=== PATIENT | male | born 1970 | race Caucasian/White ===

== ENCOUNTER 2017-05-11 12:44 | Observation (INO) | payer OTHER ==
[2017-05-11 12:51] VITALS: BMI 30.2
[2017-05-11] MEDS ORDERED: ASPIRIN 325 MG ENTERIC COATED TABLET (FP) ONE (13:09)
[2017-05-11] MEDS ORDERED: ASPIRIN 81 MG CHEWABLE TABLETS PO ONE (13:10)
[2017-05-11 13:33] LABS: BASOPHIL 0.4 % (0-2.0); EOSINOPHIL 0.3 % (0-4.5); MCH 30.5 pg (25.7-33.7); MEAN CELL VOLUME 89.5 fl (80-96); MEAN PLT VOLUME 10.5 fl (7.5-11.1); NEUTROPHILS 69.7 % (42.8-82.8); PLATELET COUNT 184 K/MM3 (134-434); RDW 12.7 % (11.9-15.9); WHITE BLOOD COUNT 7.6 K/mm3 (4.0-10.0)
--- NOTE | 2017-05-11 13:34 | PDOC ---
History of Present Illness - General History Source: Patient Exam Limitations: No Limitations - History of Present Illness Initial Comments: 05/11/17 13:40 The patient is a 46 year old male, with a significant past medical history of mitral valve prolapse and HTN, who presents to the emergency department with chest pain and shortness of breath onset 1 hour ago. The patient states that he was sitting on his desk when the pain started. He describes his chest pain as a heaviness sensation, without radiation or modifying factors. He reports that the pain was a 10/10 initially and is currently a 5/10 in severity. He notes that he had two vomiting episodes today due to the pain that was nonbilious and nonbloody. 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 He reports that he had a stress test roughly 2 years ago which was within normal limits The patient denies headache and dizziness. Denies fever, chills, nausea, vomit, diarrhea and constipation. Denies dysuria, frequency, urgency and hematuria. Allergies: None Past surgical history: Hernia repair, lower back surgery (sciatica) Social history: No alcohol, tobacco or drug use reported <Pietro Gonzalez - Last Filed: 05/11/17 13:40> <Jean Claude Arenas - Last Filed: 05/11/17 17:20> - General Chief Complaint: Chest Pain Stated Complaint: CHEST PAIN Time Seen by Provider: 05/11/17 13:10 Past History <Pietro Gonzalez - Last Filed: 05/11/17 13:40> - Past Medical History Cardiac Disorders: Yes (mitral valve [pt doent remember ]) HTN: Yes Suicide Attempt (Hx): No Other medical history: SCIATICA - Surgical History Abdominal Surgery: Yes (BILAT ING HERNIA) - Immunization History Td Vaccination: Yes TDAP Vaccination: Yes Immunization Up to Date: Yes - Psycho/Social/Smoking Cessation Hx Anxiety: No Suicidal Ideation: No Smoking Status: No Smoking History: Never smoked Years of Tobacco Use: 0 Have you smoked in the past 12 months: No Number of Cigarettes Smoked Daily: 0 Cigars Per Day: 0 Information on smoking cessation initiated: No Hx Alcohol Use: No Drug/Substance Use Hx: No Substance Use Type: None Hx Substance Use Treatment: No <Jean Claude Arenas - Last Filed: 05/11/17 17:20> - Past Medical History Allergies/Adverse Reactions: Allergies Allergy/AdvReac Type Severity Reaction Status Date / Time No Known Allergies Allergy Verified 05/11/17 12:47 Home Medications: Ambulatory Orders Amlodipine Besylate [Norvasc -] 10 mg PO DAILY #0 02/22/15 Famotidine [Pepcid] 40 mg PO DAILY #0 02/22/15 Hydrochlorothiazide [Hctz -] 50 mg PO DAILY #0 02/22/15 Metoprolol Tartrate 50 mg PO DAILY #0 02/22/15 Docusate Sodium [Colace -] 100 mg PO TID 05/11/17 Review of Systems - Review of Systems Constitutional: No: Chills, Fever Respiratory: Yes: Shortness of Breath, SOB with Exertion. No: Cough Cardiac (ROS): Yes: Chest Pain, Lightheadedness. No: Edema, Syncope ABD/GI: Yes: Nausea, Vomiting. No: Diarrhea All Other Systems: Reviewed and Negative <Jean Claude Arenas - Last Filed: 05/11/17 17:20> *Physical Exam - Vital Signs Last Vital Signs Temp Pulse Resp BP Pulse Ox 98.7 F 102 H 18 139/92 100 05/11/17 12:47 05/11/17 12:47 05/11/17 12:47 05/11/17 12:47 05/11/17 12:47 - Physical Exam Comments: 05/11/17 13:44 GENERAL: The patient is awake, alert, and fully oriented, in no acute distress. HEAD: Normal with no signs of trauma. EYES: Pupils equal, round and reactive to light, extraocular movements intact, sclera anicteric, conjunctiva clear with no pallor. ENT: Ears normal, nares patent, oropharynx clear without exudates. Moist mucous membranes. NECK: Normal range of motion, supple without lymphadenopathy, JVD, or masses. LUNGS: Breath sounds equal, clear to auscultation bilaterally. No wheeze/ crackles. HEART: Regular rate and rhythm, normal S1 and S2 without murmur or rub. ABDOMEN: Soft/nontender/nondistended. BS wnl. No guarding or rebound. No palpable masses. No hepatosplenomegaly. EXTREMITIES: Normal range of motion, no edema. No clubbing or cyanosis. No cords , erythema, or tenderness. NEUROLOGICAL: Cranial nerves II through XII grossly intact. Normal speech, normal gait. PSYCH: Normal mood, normal affect. SKIN: Warm, Dry, normal turgor, no rashes or lesions noted. <Pietro Gonzalez - Last Filed: 05/11/17 13:40> - Vital Signs Last Vital Signs Temp Pulse Resp BP Pulse Ox 98.7 F 102 H 18 139/92 100 05/11/17 12:47 05/11/17 12:47 05/11/17 12:47 05/11/17 12:47 05/11/17 12:47 <Jean Claude Arenas - Last Filed: 05/11/17 17:20> Heart Score/ECG Review #1 ECG reviewed & interpreted by me at: 12:54 General ECG Interpretation: Sinus Rhythm, Normal Rate (106, slight tachy), Normal Intervals (qtc 430), No acute ischemic changes (TWI inferior and lateral leads) #2 ECG reviewed & interpreted by me at: 14:48 General ECG Interpretation: Sinus Rhythm, Normal Rate (85), Normal Intervals, No acute ischemic changes (persistent TWI V5V6, flattening now in inferior leads. No ST changes.) <Jean Claude Arenas - Last Filed: 05/11/17 17:20> ED Treatment Course - LABORATORY CBC & Chemistry Diagram: 05/11/17 13:10 05/11/17 13:10 - Medications Given in the ED: ED Medications Discontinued Medications Generic Name Dose Route Start Last Admin Trade Name Freq PRN Reason Stop Dose Admin Aspirin 325 mg 05/11/17 13:10 05/11/17 13:11 Asa - PO 05/11/17 13:11 325 mg ONCE ONE Administration <Pietro Gonzalez - Last Filed: 05/11/17 13:40> - LABORATORY CBC & Chemistry Diagram: 05/11/17 13:10 05/11/17 13:10 - RADIOLOGY Radiology Studies Ordered: Category Date Time Status CHEST X-RAY PORTABLE* [RAD] Stat Radiology 05/11/17 13:10 Taken - Medications Given in the ED: ED Medications Discontinued Medications Generic Name Dose Route Start Last Admin Trade Name Freq PRN Reason Stop Dose Admin Aspirin 325 mg 05/11/17 13:10 05/11/17 13:11 Asa - PO 05/11/17 13:11 325 mg ONCE ONE Administration <Jean Claude Arenas - Last Filed: 05/11/17 17:20> Medical Decision Making - Medical Decision Making 05/11/17 13:31 A portion of this note was documented by scribe services under my direction. I have reviewed the details of the note, within reason, and agree with the documentation with the following case summary and management plan written by me. 46-year-old male with history of hypertension and spinal stenosis presents with chest pain episode this afternoon. Patient was at work and developed chest heaviness that radiated to his throat, associated with shortness of breath and diaphoresis and nausea/vomiting. Symptoms began about one hour prior to arrival , have predominantly resolved and now with just residual chest discomfort. Patient does have history of exertional chest pain and dyspnea, but limited exertion at baseline because of his spinal disease. Had a stress test a few years ago that was reportedly normal, never had a catheterization. Vital signs as noted. Exam is nonfocal. Left foot brace in place, no edema or calf tenderness 46-year-old male with concerning episode of chest pain today, most suspicious for unstable angina. Stat EKG shows inferior and lateral T wave inversions without notable ST change Check labs, chest x-ray Full dose aspirin Repeat EKG Will need admission for cardiac work 05/11/17 14:36 CXR normal, Trop negative but CKMB 12. Still with some chest heaviness, EKG #2 pending. Given h/o HTN, will do CT dissection protocol. Will proceed with admission to [facility]. 05/11/17 14:42 Accepted for obs tele by Dr. Villeda, signout given to [employer] Isai. Cardiology Dr. Holly consulted. 05/11/17 15:37 Began complaining of worsening pleuritic chest pain and headache. Neuro intact, VS unchanged and wnl. ? dissection, so brought for previously ordered CT protocol. Reglan for DILLON. Close monitoring. 05/11/17 17:19 Remains HD stable, still c/o some DILLON but neuro intact. On prelim review of CT, no dissection. Will proceed with tele admission. Discussed with Dr. Lang, 2nd trop ordered as per Dr. Lang. <Jean Claude Arenas - Last Filed: 05/11/17 17:20> *DC/Admit/Observation/Transfer - Attestations Scribe Attestion: 05/11/17 13:45 Documentation prepared by Pietro Gonzalez, acting as medical secretary teacher for Jean Claude Arenas MD <Pietro Gonzalez - Last Filed: 05/11/17 13:40> - Discharge Dispostion Admit: Yes <Jean Claude Arenas - Last Filed: 05/11/17 17:20> Diagnosis at time of Disposition: Unstable angina Chest pain Qualifiers: Chest pain type: precordial pain Qualified Code(s): R07.2 - Precordial pain
[2017-05-11 13:55] LABS: ANION GAP 11 (8-16); BILIRUBIN,TOTAL 0.8 mg/dL (0.2-1.0); CALCIUM 9.3 mg/dL (8.5-10.1); CO2 24 mmol/L (21-32); CREATININE 1.1 mg/dL (0.7-1.3); GLUCOSE,RANDOM 120 mg/dL (74-106); SGPT/ALT 79 U/L (12-78); TOT PROT 7.4 g/dl (6.4-8.2)
[2017-05-11 13:58] LABS: ALK PHOS 69 U/L (45-117); TROPONIN I < 0.02 ng/ml (0.00-0.05)
[2017-05-11 14:01] LABS: MAGNESIUM 2.4 mg/dL (1.8-2.4); SGOT/AST 43 U/L (15-37)
[2017-05-11] MEDS ORDERED: ACETAMINOPHEN 325 MG TABLET (FP) PO ONE (14:22)
[2017-05-11] MEDS ORDERED: ACETAMINOPHEN 325 MG TABLET (FP) ONE ×2 (14:23→14:24)
--- NOTE | 2017-05-11 14:35 | EKG ---
Test Reason : Blood Pressure : / mmHG Vent. Rate : 106 BPM Atrial Rate : 106 BPM P-R Int : 168 ms QRS Dur : 078 ms QT Int : 324 ms P-R-T Axes : 060 052 042 degrees QTc Int : 430 ms SINUS TACHYCARDIA POSSIBLE LEFT ATRIAL ENLARGEMENT NONSPECIFIC T WAVE ABNORMALITY ABNORMAL ECG WHEN COMPARED WITH ECG OF 22-FEB-2015 09:32, VENT. RATE HAS INCREASED BY 41 BPM Confirmed by DELMI LEE MD ([id number]) on 05/11/2017 2:35:02 PM Referred By: Confirmed By:DELMI LEE MD
[2017-05-11 14:37] LABS: INR 1.21 (0.82-1.09); PROTHROMBIN TIME (PATIENT) 13.4 SEC (9.98-11.88)
[2017-05-11] MEDS ORDERED: morphine CARPU-JECT 4 MG/1 ML DISP.SYRIN IVPUSH ONE (14:37)
[2017-05-11] MEDS ORDERED: morphine CARPU-JECT 4 MG/1 ML DISP.SYRIN ONE (14:45)
[2017-05-11] MEDS ORDERED: METOCLOPRAMIDE HCL INJECTION 10 MG/2 ML VIAL IVPB ONE (15:32)
[2017-05-11] MEDS ORDERED: METOCLOPRAMIDE HCL INJECTION 10 MG/2 ML VIAL ONE (15:35)
[2017-05-11] MEDS ORDERED: ONDANSETRON 4 MG/2 ML VIAL IVPB PRN (16:22)
[2017-05-11] MEDS ORDERED: ACETAMINOPHEN 325 MG TABLET (FP) PO PRN (16:22)
--- NOTE | 2017-05-11 16:32 | HP ---
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 Lang HISTORY OF PRESENT ILLNESS: 46 yo M with h/o HTN and mitral valve prolapse presented to the ED with acute onset of chest pressure and pain for 2 hours. Patient was driving when the pain came on suddenly, it's substernal, radiates to the L back, pressure like, 10/10 , non-positional and non-reproducible, associated with diaphoresis, shortness of breath and dizziness. He has similar chest pain almost every month but this time is the worst. Patient gets short of breath and chest pain after walking only one block, sleeps on 1 pillow and often has to wake up gasping for air. He was diagnosed with MVP 5 years ago when he donated bone marrow to his brother. Patient was admitted to [facility] for the same complaint 2 years ago. His stress test was negative and ECHO at that time showed a sub-centimeter echodensity that needed PAM to rule out vegetation. However, patient never followed up. He denies syncope, focal weakness, drug use, anxiety, h/o smoking or diabetes. ER course was notable for: (1) ASA 325mg x 1 (2) Morphine 4mg x 1, CP decreased from 10/10 to 5/10 (3) CTA done Recent Travel: Denies PAST MEDICAL HISTORY: HTN, MVP, sciatica PAST SURGICAL HISTORY: Hernia repair Social History: Smoking: Denies Alcohol: Denies Drugs: Denies Family History: Father of heart attack at 82 yo, mother is alive and has pacemaker Allergies No Known Allergies Allergy (Verified 05/11/17 12:47) HOME MEDICATIONS: Dyazide 37.5mg/25mg once daily quinapril 20mg BID Norvasc 10mg BID Metoprolol Succinate 25mg Daily REVIEW OF SYSTEMS CONSTITUTIONAL: Absent: fever, chills, diaphoresis, generalized weakness, malaise, loss of appetite, weight change HEENT: Absent: rhinorrhea, nasal congestion, throat pain, throat swelling, difficulty swallowing, mouth swelling, ear pain, eye pain, visual changes CARDIOVASCULAR: chest pain, lightheadedness Absent: , syncope, palpitations, irregular heart rate, , peripheral edema RESPIRATORY: shortness of breath, dyspnea with exertion, orthopnea, Absent: cough, wheezing, stridor, hemoptysis GASTROINTESTINAL: Absent: abdominal pain, abdominal distension, nausea, vomiting, diarrhea, constipation, melena, hematochezia GENITOURINARY: Absent: dysuria, frequency, urgency, hesitancy, hematuria, flank pain, genital pain MUSCULOSKELETAL: Absent: myalgia, arthralgia, joint swelling, back pain, neck pain SKIN: Absent: rash, itching, pallor HEMATOLOGIC/IMMUNOLOGIC: Absent: easy bleeding, easy bruising, lymphadenopathy, frequent infections ENDOCRINE: Absent: unexplained weight gain, unexplained weight loss, heat intolerance, cold intolerance NEUROLOGIC: Absent: headache, focal weakness or paresthesias, dizziness, unsteady gait, seizure, mental status changes, bladder or bowel incontinence PSYCHIATRIC: Absent: anxiety, depression, suicidal or homicidal ideation, hallucinations. PHYSICAL EXAMINATION Last Vital Signs Temp Pulse Resp BP Pulse Ox 98.7 F 76 18 144/96 99 05/11/17 12:47 05/11/17 15:40 05/11/17 15:40 05/11/17 15:40 05/11/17 15:40 GENERAL: Awake, alert, and fully oriented, in no acute distress. HEAD: Normal with no signs of trauma. EYES: PERRLA, sclera anicteric, conjunctiva clear. No lid lag. EARS, NOSE, THROAT: oropharynx clear without exudates. Moist mucous membranes. NECK: Normal range of motion, supple without lymphadenopathy, JVD, or masses. LUNGS: Breath sounds equal, clear to auscultation bilaterally. No wheezes, and no crackles. No accessory muscle use. HEART: RRR, normal S1 and S2 with low grade ejection murmur, rub or gallop. ABDOMEN: Soft, nontender, not distended, normoactive bowel sounds, no guarding, no rebound, no masses. No hepatomegaly or splenomegaly. EXTREMITIES: 2+ pulses, warm, well-perfused. No calf tenderness. No peripheral edema. PSYCHIATRIC: Cooperative. Good eye contact. Appropriate mood and affect. SKIN: Warm, dry, normal turgor, no rashes or lesions noted, normal capillary refill. CBCD WBC 7.6 K/mm3 (4.0-10.0) 05/11/17 13:10 RBC 5.69 M/mm3 (4.00-5.60) H 05/11/17 13:10 Hgb 17.3 GM/dL (11.7-16.9) H 05/11/17 13:10 Hct 50.9 % (35.4-49) H 05/11/17 13:10 MCV 89.5 fl (80-96) 05/11/17 13:10 MCHC 34.0 g/dl (32.0-35.9) 05/11/17 13:10 RDW 12.7 % (11.9-15.9) 05/11/17 13:10 Plt Count 184 K/MM3 (134-434) D 05/11/17 13:10 MPV 10.5 fl (7.5-11.1) 05/11/17 13:10 CMP Sodium 142 mmol/L (136-145) 05/11/17 13:10 Potassium 4.4 mmol/L (3.5-5.1) 05/11/17 13:10 Chloride 107 mmol/L (98-107) 05/11/17 13:10 Carbon Dioxide 24 mmol/L (21-32) 05/11/17 13:10 Anion Gap 11 (8-16) 05/11/17 13:10 BUN 15 mg/dL (7-18) 05/11/17 13:10 Creatinine 1.1 mg/dL (0.7-1.3) D 05/11/17 13:10 Creat Clearance w eGFR > 60 (>60) 05/11/17 13:10 Calcium 9.3 mg/dL (8.5-10.1) 05/11/17 13:10 Total Bilirubin 0.8 mg/dL (0.2-1.0) 05/11/17 13:10 AST 43 U/L (15-37) H D 05/11/17 13:10 ALT 79 U/L (12-78) H 05/11/17 13:10 Alkaline Phosphatase 69 U/L (45-117) 05/11/17 13:10 Total Protein 7.4 g/dl (6.4-8.2) 05/11/17 13:10 Albumin 4.0 g/dl (3.4-5.0) 05/11/17 13:10 IMAGING CXR on 05/11: no acute finding CTA on 05/11: pending EKG on 05/11: sinus tachycardia, LAD, non-specific T wave change, no significant change compared to prior besides tachycardia. ECHO 3 years ago: EF 50%, moderate mitral regurg ASSESSMENT/PLAN: 46 yo M with h/o HTN and mitral valve prolapse admitted to telemetry for chest pain. Unstable angina, in the setting of MVP and moderate MR - Trend troponins - Cardiac monitoring - Repeat EKG in AM - ECHO - f/u on TSH and lipid profile - Cont. asa and morphine - Cardiology consult HTN - Cont. home medications FEN - No IVF - Normal lytes - Na controlled diet, NPO after midnight for possible stress test Prophylaxis - DVT: lovenox - GI: not indicated Dispo - Observation Visit type - Emergency Visit Emergency Visit: Yes ED Registration Date: 05/11/17 Care time: The patient presented to the Emergency Department on the above date and was hospitalized for further evaluation of their emergent condition. - New Patient This patient is new to me today: Yes Date on this admission: 05/11/17 - Critical Care Critical Care patient: No
--- NOTE | 2017-05-11 16:33 | PN ---
Teaching Attending Note Name of Resident: Sebastien Balderas ATTENDING PHYSICIAN STATEMENT I saw and evaluated the patient. I reviewed the resident's note and discussed the case with the resident. I agree with the resident's findings and plan as documented. SUBJECTIVE: This is a 46 year old man with a history of HTN, MVP who comes to the ER complaining of chest pain. The pain started while he was sitting at work. It was located in the middle of his chest and radiated to his left upper back. He felt short of breath, dizzy, nauseous and diaphoretic. He vomited twice. He was admitted in February 2015 with similar complaints. He underwent a Persantine nuclear stress. There were nonspecific ST changes on EKG, and diaphragmatic attenuation on imaging. LVEF was 60%. OBJECTIVE: Vital Signs Period Temp Pulse Resp BP Sys/Tovar Pulse Ox Last 24 Hr 98.7 F 76-102 18-18 139-144/92-96 95-100 HEART: S1S2, RRR LUNGS: Clear ABDOMEN: Soft, non-tender, non-distended, normal BS EXTREMITIES: No edema ASSESSMENT AND PLAN: This is a 46 year old man with a history of HTN, MVP and a negative Persantine nuclear stress test 2 years ago who presented to the ER with chest pain, shortness of breath, diaphoresis, dizziness, nausea and vomiting while sitting at work. 1. Chest pain with SOB, diaphoresis, dizziness, nausea/vomiting - Observe on telemetry - Serial troponins - Start aspirin - Continue Toprol XL - Echocardiogram - Cardiology consult - Follow up chest CTA 2. Hypertension - Continue Toprol XL, Accupril, Norvasc, Dyazide 3. Mitral valve prolapse
[2017-05-11] MEDS ORDERED: PATIENT'S OWN MEDICATION (NON-FORMULARY) (Famotidine [Pepcid] 40 MG) PO SCH (19:15)
[2017-05-11] MEDS ORDERED: METOPROLOL TARTRATE 50 MG TABLET (FP) PO SCH (19:15)
[2017-05-11] MEDS ORDERED: amLODIPine BESYLATE 10 MG TABLET (FP) PO SCH (19:15)
[2017-05-11] MEDS ORDERED: HYDROCHLOROTHIAZIDE 25 MG TABLET (FP) PO SCH (19:15)
[2017-05-11 21:27] LABS: TROPONIN I < 0.02 ng/ml (0.00-0.05)
[2017-05-11 21:34] VITALS: BP 141/86; PULSE 68; TEMP 98.3
[2017-05-11] MEDS ORDERED: DOCUSATE SODIUM 100 MG CAPSULE (FP) PO SCH (22:00)
[2017-05-11] MEDS ORDERED: QUINAPRIL HCL 20 MG TABLET (FP) PO SCH (22:00)
--- NOTE | 2017-05-11 22:33 | PN ---
Progress Note (short form) - Note Progress Note: I was called by nurse due to patient wanting to leave hospital AMA. He was upset that visiting hours were over and his could not spend the night. When I went to evaluate the patient he was getting on the elevator, he did not want to sign AMA document. He was explained the risks of leaving including cardiac event and . Nurses and information systems security manager present, witnessed event.
--- NOTE | 2017-05-12 03:20 | CON.CARD ---
Consult Consult Specialty:: cardiology Reason for Consultation:: chest pain - History of Present Illness History of Present Illness: The patient is a 46 year old male, with a significant past medical history of mitral valve prolapse, HTN, sciatica, hyperlipidemia, who presents to the emergency department with chest pain and shortness of breath onset 1 hour ago. The patient states that he was sitting on his desk when the pain started. He describes his chest pain as a strong heaviness without radiation or modifying factors. He reports that the pain was a 10/10 initially and is currently a 5/10 in severity. He notes that he had two vomiting episodes today due to the pain that was nonbilious and nonbloody. 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 He reports that he had a stress test roughly 2 years ago which was within normal limits. The patient denies headache and dizziness. Denies fever, chills, diarrhea and constipation. Denies dysuria, frequency, urgency and hematuria. Allergies: None Past surgical history: Hernia repair, lower back surgery (sciatica). Social history: No alcohol, tobacco or drug use reported Stress MIBI 02/2015: no myocardial ischemia. ECHO 02/2015: normal LVEF; MV lesion: ? vegetation; mild-moderate MR; mild aortic root dilatation. - History Source History Provided By: Medical Record - Past Medical History Cardio/Vascular: Yes: HTN, Hyperlipdemia, Mitral Insufficiency, Other (MVP ( previous ECHO in ? 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 Home Medications - Allergies Allergies/Adverse Reactions: Allergies Allergy/AdvReac Type Severity Reaction Status Date / Time No Known Allergies Allergy Verified 05/11/17 12:47 - Home Medications Home Medications: Ambulatory Orders Amlodipine Besylate [Norvasc -] 10 mg PO DAILY #0 02/22/15 Famotidine [Pepcid] 40 mg PO DAILY #0 02/22/15 Hydrochlorothiazide [Hctz -] 50 mg PO DAILY #0 02/22/15 Metoprolol Tartrate 50 mg PO DAILY #0 02/22/15 Docusate Sodium [Colace -] 100 mg PO TID 05/11/17 Quinapril HCl [Accupril -] 20 mg PO BID 05/11/17 Family Disease History - Family Disease History Family Disease History: Diabetes: Father ( of OR age 71), Heart Disease: Father Review of Systems - Review of Systems Constitutional: reports: Weakness Eyes: reports: No Symptoms HENT: reports: No Symptoms Neck: reports: No Symptoms Cardiovascular: reports: Chest Pain Gastrointestinal: reports: Nausea, Vomiting Genitourinary: reports: No Symptoms Breasts: reports: No Symptoms Reported Musculoskeletal: reports: Muscle Pain, Muscle Weakness Integumentary: reports: No Symptoms Neurological: reports: Other Endocrine: reports: No Symptoms Hematology/Lymphatic: reports: No Symptoms Psychiatric: reports: No Symptoms - Risk Factors Known Risk Factors: Yes: Age, Gender, Hypercholesterolemia, Hypertension, Physical Inactivity Vital Signs: Vital Signs Temperature 98.3 F 05/11/17 19:35 Pulse Rate 68 05/11/17 19:35 Respiratory Rate 20 05/11/17 19:35 Blood Pressure 141/86 05/11/17 19:35 O2 Sat by Pulse Oximetry (%) 99 05/11/17 15:40 - Other Data Labs, Other Data: INR, PTT INR 1.21 (0.82-1.09) H 05/11/17 13:10 Troponin, BNP 05/11/17 19:50 Troponin I < 0.02 Troponin, BNP 05/11/17 19:50 Troponin I < 0.02 Problem List - Problems (1) Chest pain Assessment/Plan: TNI < 0.02; f/u serially CK:CKMB relative index is low (2). Telemetry; serial EKGs. EKG: sinus tachycardia (now with normal HR);nonspecific T wave changes. Stress MIBI 03/06: No ischemia. ECHO for LVEF, valve status (2014: normal LVEF: MR; mitral valve posterior leaflet lesion; mildly dilated aortic root). Consider repeat stress treadmill (unless unable to walk due to sciatica) MIBI if TNI and EKGs have no significant changes. Code(s): R07.9 - CHEST PAIN, UNSPECIFIED Qualifiers: Chest pain type: precordial pain Qualified Code(s): R07.2 - Precordial pain (2) Hyperlipidemia Assessment/Plan: f/u fasting lipids, TSH. Code(s): E78.5 - HYPERLIPIDEMIA, UNSPECIFIED (3) Hypertension Code(s): I10 - ESSENTIAL (PRIMARY) HYPERTENSION (4) Mitral regurgitation Code(s): I34.0 - NONRHEUMATIC MITRAL (VALVE) INSUFFICIENCY (5) Elevated LFTs Code(s): R79.89 - OTHER SPECIFIED ABNORMAL FINDINGS OF BLOOD CHEMISTRY (6) Sciatica Code(s): M54.30 - SCIATICA, UNSPECIFIED SIDE (7) NSAID induced gastritis Assessment/Plan: Pt has been taking ibuprofen frequently for sciatica; now with nausea, vomiting. Avoid NSAIDs due to increased cardiac risks, as well as GI irritation and potential for bleed. Code(s): T39.391A - POISONING BY OTH NONSTEROID ANTI-INFLAM DRUGS, ACC, INIT K29.60 - OTHER GASTRITIS WITHOUT BLEEDING (8) Elevated glucose Assessment/Plan: f/u fasting glucose, HGB1C. Code(s): R73.09 - OTHER ABNORMAL GLUCOSE
[2017-05-12] MEDS ORDERED: ENOXAPARIN NA (PORCINE) 40 MG/0.4 ML DISP.SYRIN SQ SCH (10:00)
[2017-05-12] MEDS ORDERED: RANITIDINE HCL 150 MG TABLET (FP) PO SCH (10:00)
--- NOTE | 2017-05-12 13:38 | EKG ---
Test Reason : Blood Pressure : / mmHG Vent. Rate : 085 BPM Atrial Rate : 085 BPM P-R Int : 190 ms QRS Dur : 086 ms QT Int : 356 ms P-R-T Axes : 051 034 045 degrees QTc Int : 423 ms NORMAL SINUS RHYTHM NONSPECIFIC ST AND T WAVE ABNORMALITY ABNORMAL ECG WHEN COMPARED WITH ECG OF 11-MAY-2017 12:54, NO SIGNIFICANT CHANGE WAS FOUND Confirmed by DIXON KEATING MD ([id number]) on 05/12/2017 1:38:00 PM Referred By: Confirmed By:DIXON KEATING MD
== END 2017-05-11 21:44 | disposition left against medical advice (07) ==
LOC: JER 12:44 → JERBED 14:43 → J4W 18:06
PROVIDERS: ADMIT Internal Medicine; ATTEND Internal Medicine
PROC: 3E033NZ Introduction of Analgesics, Hypnotics, Sedatives into Peripheral Vein, Percutaneous Approach (ICD-10-PCS; principal; 2017-05-11)
PROC: 3E033GC Introduction of Other Therapeutic Substance into Peripheral Vein, Percutaneous Approach (ICD-10-PCS; 2017-05-11)
DX: I20.0 Unstable angina (principal); I10 Essential (primary) hypertension; R07.2 Precordial pain; I34.1 Nonrheumatic mitral (valve) prolapse; M54.30 Sciatica, unspecified side; E78.5 Hyperlipidemia, unspecified; I34.0 Nonrheumatic mitral (valve) insufficiency; R79.89 Other specified abnormal findings of blood chemistry; K29.70 Gastritis, unspecified, without bleeding; T39.315A Adverse effect of propionic acid derivatives, initial encounter; Y92.9 Unspecified place or not applicable; R73.09 Other abnormal glucose
CPT/HCPCS: 36415; 71010-TC; 71275-TC; 74174-TC; 80053; 82550; 82553; 83735; 84484; 85025; 85610; 93005; 93010; 99282-25; G0378

== ENCOUNTER 2018-04-26 19:09 | Emergency (ER) | payer OTHER ==
[2018-04-26 19:40] VITALS: BP 148/97; PULSE 77; TEMP 97.6; BMI 30.2
--- NOTE | 2018-04-26 20:31 | PDOC ---
History of Present Illness - General History Source: Patient Exam Limitations: No Limitations - History of Present Illness Initial Comments: 04/26/18 20:49 The patient is a 47 year old female with a significant PMH of HTN, HLD, and sciatica who presents to the emergency department with persistent headaches for the past 6 months. The patient describes the headache as intermittent and localized to the frontal left side of the head. The patient is also complaining of associated numbness and tingling to the left side of his head and a sharp pressure on his left eye. The patient last took Ibruprofen this morning. The patient denies chest pain, shortness of breath, and dizziness. Denies fever, chills, nausea, vomit, diarrhea and constipation. Denies dysuria, frequency, urgency and hematuria. Allergies: NKA Past surgical history: None reported. Social history: No reported alcohol, drug or cigarette yse. <Hattie Albright - Last Filed: 04/26/18 23:23> <Sandi Rico - Last Filed: 04/26/18 23:56> - General Chief Complaint: Headache Stated Complaint: LEFT SIDE NUMBNESS Time Seen by Provider: 04/26/18 19:52 Past History <Hattie Albright - Last Filed: 04/26/18 23:23> - Past Medical History Cardiac Disorders: Yes (mitral valve [pt doesn't remember ]) COPD: No HTN: Yes Hypercholesterolemia: Yes - Surgical History Abdominal Surgery: Yes (BILAT ING HERNIA) - Immunization History Td Vaccination: Yes TDAP Vaccination: Yes Immunization Up to Date: Yes - Suicide/Smoking/Psychosocial Hx Smoking Status: No Smoking History: Never smoked Years of Tobacco Use: 0 Have you smoked in the past 12 months: No Number of Cigarettes Smoked Daily: 0 Cigars Per Day: 0 Hx Alcohol Use: No Drug/Substance Use Hx: No Substance Use Type: None Hx Substance Use Treatment: No <Sandi Rico - Last Filed: 04/26/18 23:56> - Past Medical History Allergies/Adverse Reactions: Allergies Allergy/AdvReac Type Severity Reaction Status Date / Time No Known Allergies Allergy Verified 05/11/17 12:47 Home Medications: Ambulatory Orders Amlodipine Besylate [Norvasc -] 10 mg PO DAILY #0 02/22/15 Famotidine [Pepcid] 40 mg PO DAILY #0 02/22/15 Hydrochlorothiazide [Hctz -] 50 mg PO DAILY #0 02/22/15 Metoprolol Tartrate 50 mg PO DAILY #0 02/22/15 Docusate Sodium [Colace -] 100 mg PO TID 05/11/17 Quinapril HCl [Accupril -] 20 mg PO BID 05/11/17 Review of Systems - Review of Systems Able to Perform ROS?: Yes Comments:: 04/26/18 20:55 CONSTITUTIONAL: Absent: fever, no chills, no fatigue EYES: Absent: visual changes Present: Sharp pain in the left eye. ENT: Absent: ear pain, no sore throat. No bruits or JVD. CARDIOVASCULAR: Absent: chest pain, no palpitations RESPIRATORY: Absent: cough, no SOB GI: Absent: abdominal pain, no nausea, no vomiting, no constipation, no diarrhea GENITOURINARY: Absent: dysuria, no frequency, no hematuria MUSKULOSKELETAL: Absent: back pain Present: Nocturnal foot cramps. Left foot drop. SKIN: Absent: rash NEURO: Absent: Present: Headache. <Hattie Albright - Last Filed: 04/26/18 23:23> *Physical Exam - Vital Signs Last Vital Signs Temp Pulse Resp BP Pulse Ox 97.6 F 77 18 148/97 98 04/26/18 19:34 04/26/18 19:34 04/26/18 19:34 04/26/18 19:34 04/26/18 19:34 - Physical Exam Comments: 04/26/18 20:58 GENERAL: Well-appearing, well-nourished. No apparent distress. HEENT: Normocephalic, atraumatic. PERRL, EOM intact. CARDIOVASCULAR: Normal S1, S2. Regular rate and rhythm. PULMONARY: Clear to auscultation bilaterally. ABDOMEN: Soft, non-distended, non-tender. EXTREMITIES: Normal ROM in all four extremities. No gross deformities. SKIN: Warm, dry. No rash NEUROLOGICAL: No focal neurological deficits. <Hattie Albright - Last Filed: 04/26/18 23:23> - Vital Signs Last Vital Signs Temp Pulse Resp BP Pulse Ox 97.6 F 77 18 148/97 98 04/26/18 19:34 04/26/18 19:34 04/26/18 19:34 04/26/18 19:34 04/26/18 19:34 <Sandi Rico - Last Filed: 04/26/18 23:56> ED Treatment Course - LABORATORY CBC & Chemistry Diagram: 04/26/18 22:50 04/26/18 22:50 <Hattie Albright - Last Filed: 04/26/18 23:23> - LABORATORY CBC & Chemistry Diagram: 04/26/18 22:50 04/26/18 22:50 - RADIOLOGY Radiology Studies Ordered: Category Date Time Status HEAD CT WITHOUT CONTRAST [CT] Stat CT Scan 04/26/18 20:23 Ordered <Sandi Rico - Last Filed: 04/26/18 23:56> Medical Decision Making - Medical Decision Making 04/26/18 23:23 Imaging: Head CT without contrast Reported by: Dr. Patel Impression: Normal CT scan of head with no evidence of acute intracranial pathology. <Hattie Albright - Last Filed: 04/26/18 23:23> - Medical Decision Making 04/26/18 23:36 Labs reviewed, and they are essentially unremarkable. Patient referred to neurology if his headaches continue 04/26/18 23:46 47-year-old male who has had headache for several days presents to the emergency department. He has no gross focal neural deficits that are new. He does have a chronic left foot drop and previous spinal surgery for radiculopathy. CAT scan of the head is negative for any acute intracranial pathology. Patient also has complaints of nocturnal leg cramps and chemistries were done. His magnesium and potassium are within normal limits. Chemistries show that he function tests are normal, glucose, and renal function are normal and his CBC is also within normal limits Patient referred to neurologist and discharged home 04/26/18 23:51 pt's headache resolved -pt encouraged to f/u w neurologist and also to see an engineering technology instructor because he has had some eye discomfort <Sandi Rico - Last Filed: 04/26/18 23:56> *DC/Admit/Observation/Transfer - Attestations Scribe Attestion: 04/26/18 20:58 Documentation prepared by Hattie Albright, acting as medical logistics specialist for Sandi Rico MD. <Carolann Albrightsy - Last Filed: 04/26/18 23:23> <Sandi Rico - Last Filed: 04/26/18 23:56> Diagnosis at time of Disposition: Headache Qualifiers: Headache type: tension-type Headache chronicity pattern: unspecified pattern Intractability: not intractable Qualified Code(s): G44.209 - Tension-type headache, unspecified, not intractable - Discharge Dispostion Disposition: HOME Condition at time of disposition: Stable - Referrals Referrals: David Fierro MD [Staff Physician] - Mert Holden MD [Staff Physician] - Jovany Edge MD [Staff Physician] - - Patient Instructions Printed Discharge Instructions: DI for Headache Additional Instructions: PLEASE FOLLOW UP WITH THE NEUROLOGIST FOR FURTHER EVALUATION OF YOUR HEADACHES ALSO FOLLOW UP WITH THE EYE DOCTOR
[2018-04-26] MEDS ORDERED: METOCLOPRAMIDE HCL INJECTION 10 MG/2 ML VIAL IVPUSH ONE (21:32)
[2018-04-26] MEDS ORDERED: KETOROLAC TROMETHAMINE 30 MG/1 ML VIAL IVPUSH ONE (21:33)
--- NOTE | 2018-04-26 22:10 | PDOC ---
NIH Stroke Scale - Last Known Well Date/Time & Onset Date Last Known Well: 04/26/18 Time Last Known Well: 22:08 - Initial Evaluation Level of consciousness: Alert Ask patient the month and their age: Answers both correctly Ask patient to open & close eyes; make fist and let go: Obeys both correctly Best gaze (horizontal eye movement): Normal Visual field testing: No visual field loss Facial paresis (Show teeth/raise eyebrows/close eyes tight): Normal symmetrical movement Motor Function: Left Arm: Normal Motor Function: Right Arm: Normal (extends arm 90 (or 45) degrees for 10 seconds without drift Motor Function: Left Leg: Normal (extends leg 30 degrees for 5 seconds without drift) Motor Function: Right Leg: Normal (extends leg 30 degrees for 5 seconds without drift) Limb Ataxia: Present in one limb (pt has CHRONIC LEFT FOOT DROP and wears a brace) Best language (Describe picture, name items, read sentences): No Aphasia Dysarthria (read several words): Normal articulation Extinction and Inattention: No abnormality
[2018-04-26] MEDS ORDERED: METOCLOPRAMIDE HCL INJECTION 10 MG/2 ML VIAL ONE (22:38)
[2018-04-26] MEDS ORDERED: KETOROLAC TROMETHAMINE 30 MG/1 ML VIAL ONE (22:39)
[2018-04-26 23:08] LABS: BASO % 0.5 % (0-2.0); EOS % 1.7 % (0-4.5); HEMATOCRIT 46.9 % (35.4-49); HEMOGLOBIN 15.9 GM/dL (11.7-16.9); MCH 30.8 pg (25.7-33.7); MCHC 33.9 g/dl (32.0-35.9); MEAN PLT VOLUME 10.2 fl (7.5-11.1); MONO % 11.8 % (3.8-10.2); PLATELET COUNT 169 K/MM3 (134-434); RBC 5.15 M/mm3 (4.00-5.60); WHITE BLOOD COUNT 6.4 K/mm3 (4.0-10.0)
[2018-04-26 23:28] LABS: ALBUMIN 3.9 g/dl (3.4-5.0); ANION GAP 7 (8-16); BILIRUBIN,TOTAL 0.4 mg/dL (0.2-1.0); BLOOD UREA NITROGEN 16 mg/dL (7-18); CALCIUM 8.8 mg/dL (8.5-10.1); CHLORIDE 102 mmol/L (98-107); CO2 31 mmol/L (21-32); GLUCOSE,RANDOM 88 mg/dL (74-106); POTASSIUM 3.9 mmol/L (3.5-5.1); SGOT/AST 44 U/L (15-37); SGPT/ALT 73 U/L (12-78); SODIUM 140 mmol/L (136-145)
[2018-04-26 23:29] LABS: ALK PHOS 72 U/L (45-117)
== END 2018-04-27 00:35 | disposition home or self-care (01) ==
LOC: JER 19:09
PROC: 3E033GC Introduction of Other Therapeutic Substance into Peripheral Vein, Percutaneous Approach (ICD-10-PCS; principal; 2018-04-26)
PROC: 3E033GC Introduction of Other Therapeutic Substance into Peripheral Vein, Percutaneous Approach (ICD-10-PCS; 2018-04-26)
PROC: 3E0333Z Introduction of Anti-inflammatory into Peripheral Vein, Percutaneous Approach (ICD-10-PCS; 2018-04-26)
DX: G44.209 Tension-type headache, unspecified, not intractable (principal); R25.2 Cramp and spasm; I10 Essential (primary) hypertension; E78.00 Pure hypercholesterolemia, unspecified
CPT/HCPCS: 36415; 70450-TC; 80053; 83735; 85025; 96374; 96375; 99282-25

== ENCOUNTER 2018-09-17 20:10 | Observation (INO) | payer OTHER ==
[2018-09-17 20:18] VITALS: BMI 31.7
--- NOTE | 2018-09-17 21:56 | PDOC ---
History of Present Illness <Diana Bunhc - Last Filed: 09/17/18 23:04> - General History Source: Patient Exam Limitations: No Limitations <Gina Wasserman - Last Filed: 09/18/18 00:21> - General Chief Complaint: Blood Pressure Problem Stated Complaint: HTN Time Seen by Provider: 09/17/18 21:18 - History of Present Illness Initial Comments: 09/17/18 22:01 The patient is a 47 year old male with past medical history of hypertension, hyperlipidemia who presents to the ED with complaints of 2 days of chest pressure. The patient states that while at work he developed a non-radiating, 10 /10 pressure sensation accompanied by mild shortness of breath, diaphoresis, nausea, and two episodes of nonbloody nonbilious vomiting. He then checked his blood pressure at home which read 170/110. This feeling continued throughout the night and had improved this morning but progressively worsened throughout the day. In the ED he reports his symptoms have subsided slightly and he is now weak. He denies any modifying factors. He reports associated headache but states he typically has one every day. Denies any fevers or chills. Denies any palpitations, lightheadedness or dizziness. Denies any urinary symptoms. Denies recent travel. Social: Has a social drink and cigar. Denies any drug use. Family: Prominent cardiac history from both mother and father. PCP: Dr. Pope Automatic Lathe Operator: Dr. Lang ([place]) Past History <Julio CDiana - Last Filed: 09/17/18 23:04> - Past Medical History Cardiac Disorders: Yes (mitral valve [pt doesn't remember ]) COPD: No HTN: Yes Hypercholesterolemia: Yes - Surgical History Abdominal Surgery: Yes (BILAT ING HERNIA) - Immunization History Td Vaccination: Yes TDAP Vaccination: Yes Immunization Up to Date: Yes - Suicide/Smoking/Psychosocial Hx Smoking Status: No Smoking History: Never smoked Years of Tobacco Use: 0 Have you smoked in the past 12 months: No Number of Cigarettes Smoked Daily: 0 Cigars Per Day: 0 Information on smoking cessation initiated: No Hx Alcohol Use: No Drug/Substance Use Hx: No Substance Use Type: None Hx Substance Use Treatment: No <Gina Wasserman - Last Filed: 09/18/18 00:21> - Past Medical History Allergies/Adverse Reactions: Allergies Allergy/AdvReac Type Severity Reaction Status Date / Time No Known Allergies Allergy Verified 09/17/18 20:18 Home Medications: Ambulatory Orders Amlodipine Besylate [Norvasc -] 10 mg PO DAILY #0 02/22/15 Famotidine [Pepcid] 40 mg PO DAILY #0 02/22/15 Hydrochlorothiazide [Hctz -] 50 mg PO DAILY #0 02/22/15 Metoprolol Tartrate 50 mg PO DAILY #0 02/22/15 Docusate Sodium [Colace -] 100 mg PO TID 05/11/17 Quinapril HCl [Accupril -] 20 mg PO BID 05/11/17 Review of Systems - Review of Systems Able to Perform ROS?: Yes All Other Systems: Reviewed and Negative <Diana Bunch - Last Filed: 09/17/18 23:04> <Gina Wasserman - Last Filed: 09/18/18 00:21> - Review of Systems Comments:: 09/17/18 22:01 GENERAL/CONSTITUTIONAL: No fever or chills. No weakness. HEAD, EYES, EARS, NOSE AND THROAT: No change in vision. No ear pain or discharge. No sore throat. CARDIOVASCULAR: (+) chest pressure, SOB. RESPIRATORY: No cough, wheezing, or hemoptysis. GASTROINTESTINAL: (+) Nausea, vomiting. No diarrhea or constipation. GENITOURINARY: No dysuria, frequency, or change in urination. MUSCULOSKELETAL: No joint or muscle swelling or pain. No neck or back pain. SKIN: No rash NEUROLOGIC: (+) Headache. No vertigo, loss of consciousness, or change in strength/sensation. ENDOCRINE: No increased thirst. No abnormal weight change. HEMATOLOGIC/LYMPHATIC: No anemia, easy bleeding, or history of blood clots. ALLERGIC/IMMUNOLOGIC: No hives or skin allergy. (Diana Bunch) *Physical Exam <Diana Bunch - Last Filed: 09/17/18 23:04> <Gina Wasserman - Last Filed: 09/18/18 00:21> - Vital Signs Last Vital Signs Temp Pulse Resp BP Pulse Ox 98.9 F 98 H 14 143/94 100 09/17/18 20:14 09/17/18 20:14 09/17/18 20:14 09/17/18 20:14 09/17/18 20:14 - Physical Exam Comments: 09/17/18 22:02 GENERAL: Awake, alert, and fully oriented, in no acute distress HEAD: No signs of trauma EYES: PERRLA, EOMI, sclera anicteric, conjunctiva clear ENT: Auricles normal inspection, hearing grossly normal, nares patent, oropharynx clear without exudates. Moist mucosa NECK: Normal ROM, supple, no lymphadenopathy, JVD, or masses LUNGS: Breath sounds equal, clear to auscultation bilaterally. No wheezes, and no crackles HEART: Regular rate and rhythm, normal S1 and S2, no murmurs, rubs or gallops ABDOMEN: Soft, nontender, normoactive bowel sounds. No guarding, no rebound. No masses EXTREMITIES: Normal range of motion, no edema. No clubbing or cyanosis. No cords, erythema, or tenderness NEUROLOGICAL: Cranial nerves II through XII grossly intact. Normal speech, normal gait SKIN: Warm, Dry, normal turgor, no rashes or lesions noted. ([place]) Heart Score/ECG Review - History History: Moderately suspicious - Electrocardiogram EKG: Normal - Age Age: 45-65 - Risk Factors Risk Factors Heart Score: Yes Hx Hypercholesterolemia, Yes Hx Hypertension Based on the list above the patient has:: 1-2 risk factors - Troponin Troponin: </= normal limit - Score Heart Score - Total: 3 <Gina Wasserman - Last Filed: 09/18/18 00:21> ED Treatment Course - LABORATORY CBC & Chemistry Diagram: 09/17/18 21:53 09/17/18 21:53 <Diana Bunch - Last Filed: 09/17/18 23:04> - LABORATORY CBC & Chemistry Diagram: 09/17/18 21:53 09/17/18 21:53 <Gina Wasserman - Last Filed: 09/18/18 00:21> - ADDITIONAL ORDERS Additional order review: Laboratory Results 09/17/18 09/17/18 21:53 21:53 PT with INR 13.80 H INR 1.17 H Sodium 140 Potassium 4.3 Chloride 103 Carbon Dioxide 27 Anion Gap 10 BUN 12 Creatinine 1.0 Creat Clearance w eGFR > 60 Random Glucose 100 Calcium 8.4 L Magnesium 2.2 Total Bilirubin 0.6 AST 23 ALT 51 Alkaline Phosphatase 75 Creatine Kinase 436 H Creatine Kinase Index 1.7 CK-MB (CK-2) 7.8 H Troponin I < 0.02 Total Protein 7.3 Albumin 4.0 09/17/18 21:53 RBC 5.47 MCV 90.3 MCHC 33.1 RDW 13.0 MPV 9.8 Neutrophils % 74.9 D Lymphocytes % 12.2 D Monocytes % 12.3 H Eosinophils % 0.2 D Basophils % 0.4 - RADIOLOGY Radiology Studies Ordered: Category Date Time Status CHEST PA & LAT [RAD] Stat Radiology 09/17/18 21:23 Taken Medical Decision Making <Diana Bunch - Last Filed: 09/17/18 23:04> <Gina Wasserman - Last Filed: 09/18/18 00:21> - Medical Decision Making 09/17/18 23:04 Microblog sent to [facility] for observation. Awaiting call back. (Diana Bunch) Mr Larry is a 47-year-old male with a history of hypertension, hyperlipidemia who presents emergency department with a complaint of chest pain. Patient states he symptoms began yesterday evening while at work. After leaving work and coming home he noted that he felt nauseous, vomited twice. He had some sweating. He noted chest heaviness. He went to bed. He woke this morning and felt like he couldn't go to work. He did go in late but noted that his chest pain worsened Patient also notes that he has had a headache. He reports that he always daily has a headache. DD: Differential includes cardiac ischemia, pe, asthma exacerbation, pneumonia, pneumothorax, pleural effusion, costochondritis, pericarditis, GERD. Will do labs Will do EKG Will do CXR Will treat Headache 09/17/18 22:48 Laboratory Tests 09/17/18 09/17/18 21:53 21:53 WBC 8.7 Hgb 16.4 Hct 49.3 H Plt Count 149 BUN 12 Creatinine 1.0 Creatine Kinase 436 H Troponin I < 0.02 09/17/18 22:48 EKG - Normal sinus rhythm, rate of 94 bpm, axis is normal, intervals are normal , no ST elevations or depressions, T waves are upright. 09/17/18 22:51 09/17/18 22:53 09/17/18 23:02 CXR - nml (Gina Wasserman) *DC/Admit/Observation/Transfer <Diana Bunch - Last Filed: 09/17/18 23:04> - Discharge Dispostion Decision to Admit order: Yes <Gina Wasserman - Last Filed: 09/18/18 00:21> Diagnosis at time of Disposition: Chest pain Qualifiers: Chest pain type: unspecified Qualified Code(s): R07.9 - Chest pain, unspecified - Discharge Dispostion Condition at time of disposition: Stable - Referrals Referrals: Sudhir Pope MD [Primary Care Provider] - - Patient Instructions - Post Discharge Activity - Attestations Scribe Attestion: 09/17/18 22:02 Documentation prepared by Diana Bunch, acting as medical assistant secretary for Gina Wasserman MD. (Diana Bunch)
[2018-09-17 22:08] LABS: BASO % 0.4 % (0-2.0); EOS % 0.2 % (0-4.5); HEMATOCRIT 49.3 % (35.4-49); HEMOGLOBIN 16.4 GM/dL (11.7-16.9); LYMPH % 12.2 % (8-40); MCH 29.9 pg (25.7-33.7); MCHC 33.1 g/dl (32.0-35.9); MEAN CELL VOLUME 90.3 fl (80-96); MEAN PLT VOLUME 9.8 fl (7.5-11.1); MONO % 12.3 % (3.8-10.2); NEUT % 74.9 % (42.8-82.8); PLATELET COUNT 149 K/MM3 (134-434); RBC 5.47 M/mm3 (4.00-5.60); WHITE BLOOD COUNT 8.7 K/mm3 (4.0-10.0)
[2018-09-17 22:21] LABS: INR 1.17 (0.83-1.09); PROTHROMBIN TIME (PATIENT) 13.8 SEC (9.7-13.0)
[2018-09-17 22:37] LABS: ALK PHOS 75 U/L (45-117); ANION GAP 10 MMOL/L (8-16); BILIRUBIN,TOTAL 0.6 mg/dL (0.2-1); BLOOD UREA NITROGEN 12 mg/dL (7-18); CALCIUM 8.4 mg/dL (8.5-10.1); CHLORIDE 103 mmol/L (98-107); CO2 27 mmol/L (21-32); GLUCOSE,RANDOM 100 mg/dL (74-106); MAGNESIUM 2.2 mg/dL (1.8-2.4); POTASSIUM 4.3 mmol/L (3.5-5.1); SGOT/AST 23 U/L (15-37); SGPT/ALT 51 U/L (13-61); SODIUM 140 mmol/L (136-145); TOT PROT 7.3 g/dl (6.4-8.2)
[2018-09-17] MEDS ORDERED: METOCLOPRAMIDE HCL INJECTION 10 MG/2 ML VIAL IVPUSH ONE (22:52)
[2018-09-17] MEDS ORDERED: ACETAMINOPHEN 1000 MG/100 ML VIAL (NON FORMULARY) IVPB ONE (22:52)
[2018-09-17] MEDS ORDERED: NITROGLYCERIN SUBLINGUAL 1/150 0.4 MG TAB SL ONE (23:00)
[2018-09-18] MEDS ORDERED: METOCLOPRAMIDE HCL INJECTION 10 MG/2 ML VIAL ONE (00:45)
[2018-09-18] MEDS ORDERED: ACETAMINOPHEN INJECTION 100 ML IVPB ONE (00:45)
--- NOTE | 2018-09-18 01:15 | HP ---
CHIEF COMPLAINT: Chest Pain PCP: Dr. Miguel HISTORY OF PRESENT ILLNESS: 47 y/o male with PMH of HTN, HLD, presents to the ED with a one day history of chest pain. He states that yesterday at work he started to feel a heaviness on his chest- he states that he began to feel a pressure on his chest, he described the pain as a sharp, non-radiating pain with associated diaphoresis, and two episodes of non-bloody, non-bilious vomiting. He has had multiple ER visits in the past for chest pain and he states his BP is always on the high side even with taking his medications. ER course was notable for: (1)given sublingual nitroglycerin and reglan (2) (3) Recent Travel: none PAST MEDICAL HISTORY: see above PAST SURGICAL HISTORY: inguinal hernia repair Social History: Smoking:occasional cigar smoker Alcohol: denies Drugs: denies Family History: father: DM and CAD past away from [place]; mother: DM and HTN, alive and has a pacemaker Allergies No Known Allergies Allergy (Verified 09/17/18 20:18) HOME MEDICATIONS: Home Medications Medication Instructions Recorded Amlodipine Besylate [Norvasc -] 10 mg PO DAILY #0 02/22/15 Famotidine [Pepcid] 40 mg PO DAILY #0 02/22/15 Hydrochlorothiazide [Hctz -] 50 mg PO DAILY #0 02/22/15 Metoprolol Tartrate 50 mg PO DAILY #0 02/22/15 Docusate Sodium [Colace -] 100 mg PO TID 05/11/17 Quinapril HCl [Accupril -] 20 mg PO BID 05/11/17 REVIEW OF SYSTEMS CONSTITUTIONAL: Absent: fever, chills, diaphoresis, generalized weakness, malaise, loss of appetite, weight change HEENT: Absent: rhinorrhea, nasal congestion, throat pain, throat swelling, difficulty swallowing, mouth swelling, ear pain, eye pain, visual changes CARDIOVASCULAR: Present:chest pain Absent: syncope, palpitations, irregular heart rate, lightheadedness, peripheral edema RESPIRATORY: Absent: cough, shortness of breath, dyspnea with exertion, orthopnea, wheezing, stridor, hemoptysis GASTROINTESTINAL: Absent: abdominal pain, abdominal distension, nausea, vomiting, diarrhea, constipation, melena, hematochezia GENITOURINARY: Absent: dysuria, frequency, urgency, hesitancy, hematuria, flank pain, genital pain MUSCULOSKELETAL: Absent: myalgia, arthralgia, joint swelling, back pain, neck pain SKIN: Absent: rash, itching, pallor HEMATOLOGIC/IMMUNOLOGIC: Absent: easy bleeding, easy bruising, lymphadenopathy, frequent infections ENDOCRINE: Absent: unexplained weight gain, unexplained weight loss, heat intolerance, cold intolerance NEUROLOGIC: Present: headache,Absent: focal weakness or paresthesias, dizziness, unsteady gait, seizure, mental status changes, bladder or bowel incontinence PSYCHIATRIC: Absent: anxiety, depression, suicidal or homicidal ideation, hallucinations. PHYSICAL EXAMINATION Vital Signs - 24 hr 09/17/18 20:14 Temperature 98.9 F Pulse Rate 98 H Respiratory 14 Rate Blood Pressure 143/94 O2 Sat by Pulse 100 Oximetry (%) GENERAL: Awake, alert, and fully oriented, in no acute distress. EYES: no scleral icterus. NECK: no JVD appreciated LUNGS:CTA B/L; no rales, rhonchi or wheezing HEART: Regular rate and rhythm, normal S1 and S2 without murmur, rub or gallop. ABDOMEN: Soft, nontender, not distended, normoactive bowel sounds, no guarding, no rebound, no masses. No hepatomegaly or splenomegaly. MUSCULOSKELETAL: Normal range of motion at all joints. No bony deformities or tenderness. No CVA tenderness. LOWER EXTREMITIES: 2+ pulses, warm, well-perfused. No calf tenderness. No peripheral edema. PSYCHIATRIC: Cooperative. Good eye contact. Appropriate mood and affect. SKIN: Warm, dry, normal turgor, no rashes or lesions noted, normal capillary refill. Laboratory Results - last 24 hr 09/17/18 09/17/18 09/17/18 21:53 21:53 21:53 WBC 8.7 RBC 5.47 Hgb 16.4 Hct 49.3 H MCV 90.3 MCH 29.9 MCHC 33.1 RDW 13.0 Plt Count 149 MPV 9.8 Absolute Neuts (auto) 6.5 Neutrophils % 74.9 D Lymphocytes % 12.2 D Monocytes % 12.3 H Eosinophils % 0.2 D Basophils % 0.4 Nucleated RBC % 0 PT with INR 13.80 H INR 1.17 H Sodium 140 Potassium 4.3 Chloride 103 Carbon Dioxide 27 Anion Gap 10 BUN 12 Creatinine 1.0 Creat Clearance w eGFR > 60 Random Glucose 100 Calcium 8.4 L Magnesium 2.2 Total Bilirubin 0.6 AST 23 ALT 51 Alkaline Phosphatase 75 Creatine Kinase 436 H Creatine Kinase Index 1.7 CK-MB (CK-2) 7.8 H Troponin I < 0.02 Total Protein 7.3 Albumin 4.0 ASSESSMENT/PLAN: 47 y/o male with PMH of HTN and HLD who presents to the ED with complaints of ongoing chest pain for the past two days, with associated diaphoresis and 2 episodes of nonbloody, nonbilious vomiting. Chest Pain- r/o ACS: troponins negative X2- one more pending no EKG changes -added 81 asa daily -cardiology consulted -echocardiogram pending -possible stress test? HTN: -nifedipine 60 daily -metoprolol tartrate 50 daily- titrate accordingly -ramipril 10 daily HLD: atorvastatin 20 daily F/E/N not on standing fluids replete electrolytes when needed sodium restricted diet DVT PPX Heparin SQ TID Problem List - Problem (1) Chest pain Code(s): R07.9 - CHEST PAIN, UNSPECIFIED Qualifiers: Chest pain type: unspecified Qualified Code(s): R07.9 - Chest pain, unspecified (2) Hyperlipidemia Code(s): E78.5 - HYPERLIPIDEMIA, UNSPECIFIED (3) Hypertension Code(s): I10 - ESSENTIAL (PRIMARY) HYPERTENSION Visit type - Emergency Visit Emergency Visit: Yes ED Registration Date: 09/18/18 Care time: The patient presented to the Emergency Department on the above date and was hospitalized for further evaluation of their emergent condition. - New Patient This patient is new to me today: Yes Date on this admission: 09/18/18 - Critical Care Critical Care patient: No
[2018-09-18] MEDS: HEPARIN NA (PORCINE) 5,000 UNITS/ML 1ML VIAL SQ SCH ×3 (06:13→21:57)
--- NOTE | 2018-09-18 06:28 | PN ---
Teaching Attending Note Name of Resident: Yumiko Montenegro ATTENDING PHYSICIAN STATEMENT I saw and evaluated the patient. I reviewed the resident's note and discussed the case with the resident. I agree with the resident's findings and plan as documented. SUBJECTIVE: OBJECTIVE: ASSESSMENT AND PLAN: this is a 47 y/o male patient with history of HTN, and dyslipidemia, presented to the hospital for chest discomfort, typical in nature. patient stated that this was the 2nd time he has had this the last time it happened he was exerting himself, but not this time. ACS r/o plan: Uncotroled HTN - patient is on 3 medication and he still has BP at the home and at work d/c amlodipoine stat nifidipine 60mg d/c hCTZ 50 start ramipril 5mg tiitrate dose to 10mg Typical stable angina: - aspirin 81mg - metoprolol 50mg daily titrate as required for chest pain - atorvastatin 20mg - obtain cholesterol - obtain TSH - echocardiogram - exercise stress test vs nuclear stress test - cardiology consult dyslipideamia: - obtain total cholesterol - TSH - increase the statin monocytosis: obtain smear
[2018-09-18 08:30] LABS: CHOLESTEROL 173 mg/dL (50-200); HDL CHOLESTEROL 38 mg/dL (40-60); TRIGLYCERIDES 124 mg/dL (0-150)
[2018-09-18] MEDS: RAMIPRIL 5 MG CAPSULE (FP) PO SCH (09:34)
[2018-09-18] MEDS: NIFEdipine E.R 60 MG TABLET (UD) PO SCH (09:34)
[2018-09-18] MEDS: ASPIRIN 81 MG CHEWABLE TABLETS PO SCH (09:34)
[2018-09-18] MEDS ORDERED: amLODIPine BESYLATE 10 MG TABLET (FP) PO SCH (10:00)
[2018-09-18] MEDS ORDERED: METOPROLOL TARTRATE 50 MG TABLET (FP) PO SCH (10:00)
[2018-09-18] MEDS ORDERED: HYDROCHLOROTHIAZIDE 25 MG TABLET (FP) PO SCH (10:00)
[2018-09-18] MEDS ORDERED: QUINAPRIL HCL 20 MG TABLET (FP) PO SCH (10:00)
--- NOTE | 2018-09-18 11:05 | CON.CARD ---
Consult Consult Specialty:: cardiology Reason for Consultation:: chest pressure - History of Present Illness Chief Complaint: Pt A&Ox3; has been having a headcahe daily for several days; he is upset that he has not eaten since yesterday afternoon, and had to take medications "on an empty stomach". History of Present Illness: The patient is a 47 year old male with past medical history of hypertension, hyperlipidemia, overweight, sciatica-->lower back surgery 2016, with left foot weakness post-0p (wears a brace), anxiety, who presents to the ED with complaints of 2 days of heardache and chest pressure. The patient states that while at work he developed a non-radiating, 10/10 pressure sensation accompanied by mild shortness of breath, diaphoresis, nausea, and two episodes of nonbloody nonbilious vomiting. He then checked his blood pressure at home which read 170/110. This feeling continued throughout the night and had improved this morning but progressively worsened throughout the day. In the ED he reports his symptoms have subsided slightly and he is now weak. He denies any modifying factors. He reports associated headache but states he typically has one every day. Denies any fevers or chills. Denies any palpitations, lightheadedness or dizziness. Denies any urinary symptoms. Denies recent travel. Social: Has a social drink and cigar. Denies any drug use. Family: Prominent cardiac history from both mother and father. PCP: Dr. Pope Impress Associate: Dr. Lang (has missed past 2 appointments). - History Source History Provided By: Patient, Medical Record Limitations to Obtaining History: No Limitations - Past Medical History Cardio/Vascular: Yes: HTN, Hyperlipdemia, Mitral Insufficiency, Other (MVP ( previous ECHO in ? [address] 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 Home Medications - Allergies Allergies/Adverse Reactions: Allergies Allergy/AdvReac Type Severity Reaction Status Date / Time No Known Allergies Allergy Verified 09/17/18 20:18 - Home Medications Home Medications: Ambulatory Orders Amlodipine Besylate [Norvasc -] 10 mg PO DAILY #0 02/22/15 Famotidine [Pepcid] 40 mg PO DAILY #0 02/22/15 Hydrochlorothiazide [Hctz -] 50 mg PO DAILY #0 02/22/15 Metoprolol Tartrate 50 mg PO DAILY #0 02/22/15 Docusate Sodium [Colace -] 100 mg PO TID 05/11/17 Quinapril HCl [Accupril -] 20 mg PO BID 05/11/17 Family Disease History - Family Disease History Family Disease History: Diabetes: Father ( of [place] age 71), Heart Disease: Father Review of Systems - Review of Systems Constitutional: reports: No Symptoms Eyes: reports: No Symptoms HENT: reports: No Symptoms Neck: reports: No Symptoms Cardiovascular: reports: Chest Pain Respiratory: reports: No Symptoms Gastrointestinal: reports: No Symptoms Genitourinary: reports: No Symptoms Breasts: reports: No Symptoms Reported Musculoskeletal: reports: No Symptoms Integumentary: reports: No Symptoms Neurological: reports: Headache Endocrine: reports: No Symptoms Hematology/Lymphatic: reports: No Symptoms Psychiatric: reports: Anxiety - Risk Factors Known Risk Factors: Yes: Age, Family History, Gender, Hypercholesterolemia, Hypertension, Physical Inactivity Vital Signs: Vital Signs Temperature 98.4 F 09/18/18 09:00 Pulse Rate 82 09/18/18 09:00 Respiratory Rate 18 09/18/18 09:00 Blood Pressure 136/85 09/18/18 09:00 O2 Sat by Pulse Oximetry (%) 97 09/18/18 04:32 Constitutional: Yes: Anxious, Mild Distress Eyes: Yes: WNL HENT: Yes: WNL Neck: Yes: WNL Respiratory: Yes: WNL Gastrointestinal: Yes: WNL Renal/: Yes: WNL Cardiovascular: Yes: WNL JVD: No Carotid Bruit: No PMI: Non-Displaced Heart Sounds: Yes: S1, S2, S4 Musculoskeletal: Yes: WNL Extremities: Yes: WNL Edema: No Peripheral Pulses WNL: Yes Integumentary: Yes: WNL Neurological: Yes: Other (felt foot weakness on trying to lift it upward ( started after surgery for sciatica 2 years ago)) - Other Data Labs, Other Data: CBC, BMP 09/17/18 21:53 09/17/18 21:53 INR, PTT INR 1.17 (0.83-1.09) H 09/17/18 21:53 Troponin, BNP 09/17/18 09/18/18 09/18/18 21:53 02:53 07:30 Troponin I < 0.02 < 0.02 < 0.02 Troponin, BNP 09/17/18 09/18/18 09/18/18 21:53 02:53 07:30 Troponin I < 0.02 < 0.02 < 0.02 Imaging - Results Chest X-ray: Image Reviewed (no acute pathology) EKG: Image Reviewed (NSR; nonspecific T wave changes) Problem List - Problems (1) Chest pain Assessment/Plan: see under "HTN". Code(s): R07.9 - CHEST PAIN, UNSPECIFIED Qualifiers: Chest pain type: unspecified Qualified Code(s): R07.9 - Chest pain, unspecified (2) Elevated glucose Code(s): R73.09 - OTHER ABNORMAL GLUCOSE (3) Headache Assessment/Plan: daily headaches; he believes it is related to elevated BP, but does not take BP reading every day. Head CT 04/2018: no acute pathology Code(s): R51 - HEADACHE Qualifiers: Headache type: tension-type Headache chronicity pattern: unspecified pattern Intractability: not intractable Qualified Code(s): G44.209 - Tension -type headache, unspecified, not intractable (4) Hyperlipidemia Assessment/Plan: inrease statin (LDL >100 mg/dL). Decrease weight with portion control (pt says he follows a diet rich in fruits and vegetables); increase exercise (once coronary arteries are evaluated). Code(s): E78.5 - HYPERLIPIDEMIA, UNSPECIFIED (5) Hypertension Assessment/Plan: On nifedipine, HCTZ (last took yesterday afternoon, per pt; he says he has to urinate several times a night because of the medication), ACEI. Discontinue metoprolol. Serial BP and HR (on ramipril and nifedipine). TNI < 0.02 x 3. EKG: NSR; nonspecific T wave changes. Elevated lipids. F/u TSH. Pt with SOB and chest pressure. For stress MIBI in am. Code(s): I10 - ESSENTIAL (PRIMARY) HYPERTENSION (6) NSAID induced gastritis Assessment/Plan: Pt takes ibuprofen for headahces; recommend changing to Tylenol or another class of medicaction for pain. Code(s): T39.391A - POISONING BY OTH NONSTEROID ANTI-INFLAM DRUGS, ACC, INIT; K29.60 - OTHER GASTRITIS WITHOUT BLEEDING (7) Sciatica Code(s): M54.30 - SCIATICA, UNSPECIFIED SIDE
--- NOTE | 2018-09-18 12:57 | HOSP ---
Subjective - Review of Symptoms Subjective: c/o slight chest discomfort. states not like on presentation. more of a soreness. denies fever, chills, cough, radiation of pain, N/V/C/D has not had stress test since 2014 here in the hospital which was normal +Family hx of cardiac disease Current Medications Generic Name Dose Route Start Last Admin Trade Name Priyanka PRN Reason Stop Dose Admin Aspirin 81 mg 09/18/18 10:00 09/18/18 09:34 Asa - PO 81 mg DAILY VAUGHN Administration Atorvastatin Calcium 40 mg 09/18/18 22:00 Lipitor - PO HS VAUGHN Heparin Sodium (Porcine) 5,000 unit 09/18/18 06:00 09/18/18 06:13 Heparin - SQ 5,000 unit TID VAUGHN Administration Nifedipine 60 mg 09/18/18 10:00 09/18/18 09:34 Procardia Xl - PO 60 mg DAILY VAUGHN Administration Ramipril 10 mg 09/18/18 10:00 09/18/18 09:34 Altace - PO 10 mg DAILY VAUGHN Administration Last Vital Signs Temp Pulse Resp BP Pulse Ox 98.4 F 82 18 136/85 97 09/18/18 09:00 09/18/18 09:00 09/18/18 09:00 09/18/18 09:00 09/18/18 04:32 General NAD CV S1 S2 RRR no murmur/rub/gallop no chest wall tenderness Lungs CTA B/L no wheezing/rales/rhonchi CBCD WBC 8.7 K/mm3 (4.0-10.0) 09/17/18 21:53 RBC 5.47 M/mm3 (4.00-5.60) 09/17/18 21:53 Hgb 16.4 GM/dL (11.7-16.9) 09/17/18 21:53 Hct 49.3 % (35.4-49) H 09/17/18 21:53 MCV 90.3 fl (80-96) 09/17/18 21:53 MCHC 33.1 g/dl (32.0-35.9) 09/17/18 21:53 RDW 13.0 % (11.9-15.9) 09/17/18 21:53 Plt Count 149 K/MM3 (134-434) 09/17/18 21:53 MPV 9.8 fl (7.5-11.1) 09/17/18 21:53 CMP Sodium 140 mmol/L (136-145) 09/17/18 21:53 Potassium 4.3 mmol/L (3.5-5.1) 09/17/18 21:53 Chloride 103 mmol/L (98-107) 09/17/18 21:53 Carbon Dioxide 27 mmol/L (21-32) 09/17/18 21:53 Anion Gap 10 MMOL/L (8-16) 09/17/18 21:53 BUN 12 mg/dL (7-18) 09/17/18 21:53 Creatinine 1.0 mg/dL (0.55-1.3) 09/17/18 21:53 Creat Clearance w eGFR > 60 (>60) 09/17/18 21:53 Random Glucose 100 mg/dL (74-106) 09/17/18 21:53 Calcium 8.4 mg/dL (8.5-10.1) L 09/17/18 21:53 Total Bilirubin 0.6 mg/dL (0.2-1) 09/17/18 21:53 AST 23 U/L (15-37) 09/17/18 21:53 ALT 51 U/L (13-61) 09/17/18 21:53 Alkaline Phosphatase 75 U/L (45-117) 09/17/18 21:53 Total Protein 7.3 g/dl (6.4-8.2) 09/17/18 21:53 Albumin 4.0 g/dl (3.4-5.0) 09/17/18 21:53 CARDIAC ENZYMES Creatine Kinase 348 IU/L (26-308) H 09/18/18 02:53 Troponin I < 0.02 ng/ml (0.00-0.05) 09/18/18 07:30 A/P 47yo M with PMH HTN and dyslipidemia presented to the Er iwth CP x2 days 1. CP- no events on monitoring manager. Cardiac enzymes neg x3. has slight discomfort but no pain. NPO for Stress tomorrow. check echo. Cardio on board 2. HTN- controlled. states not tolerating HCTZ due to frequent urinartion. appears controlled here. will hold at this itme. cont acei/nifedipine 3. Dsylipidemia- switch to high intensity statin 4. DVT ppx- hep sq 5. possible d/c tomorrow after NMST pending on results Physical Examination Vital Signs: Vital Signs Temperature 98.4 F 09/18/18 09:00 Pulse Rate 82 09/18/18 09:00 Respiratory Rate 18 09/18/18 09:00 Blood Pressure 136/85 09/18/18 09:00 O2 Sat by Pulse Oximetry (%) 97 09/18/18 04:32 Labs: CBC, BMP 09/17/18 21:53 09/17/18 21:53
--- NOTE | 2018-09-18 13:59 | EKG ---
Test Reason : Blood Pressure : / mmHG Vent. Rate : 094 BPM Atrial Rate : 094 BPM P-R Int : 168 ms QRS Dur : 076 ms QT Int : 332 ms P-R-T Axes : 053 032 063 degrees QTc Int : 415 ms NORMAL SINUS RHYTHM NONSPECIFIC T WAVE ABNORMALITY ABNORMAL ECG WHEN COMPARED WITH ECG OF 11-MAY-2017 14:48, NO SIGNIFICANT CHANGE WAS FOUND Confirmed by MD Obie, Estiven ([id number]) on 09/18/2018 1:59:39 PM Referred By: DANA Confirmed By:Estiven Ragland MD
[2018-09-18] MEDS ORDERED: ATORVASTATIN CA 40 MG TABLET (FP) PO SCH (22:00)
[2018-09-18] MEDS ORDERED: ATORVASTATIN CA 20 MG TABLET (FP) PO SCH (22:00)
[2018-09-19] MEDS: HEPARIN NA (PORCINE) 5,000 UNITS/ML 1ML VIAL SQ SCH ×2 (05:54→14:16)
[2018-09-19 06:10] LABS: HEMATOCRIT 47.4 % (35.4-49); HEMOGLOBIN 15.9 GM/dL (11.7-16.9); MCH 30.4 pg (25.7-33.7); MCHC 33.5 g/dl (32.0-35.9); MEAN CELL VOLUME 90.6 fl (80-96); MEAN PLT VOLUME 9.5 fl (7.5-11.1); PLATELET COUNT 148 K/MM3 (134-434); RBC 5.23 M/mm3 (4.00-5.60); RDW 12.8 % (11.9-15.9); WHITE BLOOD COUNT 6.1 K/mm3 (4.0-10.0)
[2018-09-19 06:51] LABS: ANION GAP 6 MMOL/L (8-16); BLOOD UREA NITROGEN 19 mg/dL (7-18); CALCIUM 8.5 mg/dL (8.5-10.1); CHLORIDE 105 mmol/L (98-107); CO2 27 mmol/L (21-32); GLUCOSE,RANDOM 98 mg/dL (74-106); MAGNESIUM 2.1 mg/dL (1.8-2.4); PHOSPHOROUS 3.8 mg/dL (2.5-4.9); SODIUM 137 mmol/L (136-145)
--- NOTE | 2018-09-19 09:59 | ECHO ---
Name: DEREK DUONG Exam:Adult Echocardiogram Study Date: 09/19/2018 09:25 AM Age: 47 yrs Reason For Study: LV Function Height: 74 in Weight: 247 lb BSA: 2.4 m2 MMode/2D Measurements & Calculations IVSd: 1.1 cm Ao root diam: 3.2 cm LVIDd: 5.3 cm LA dimension: 3.8 cm LVIDs: 3.6 cm LVPWd: 1.2 cm EDV(Teich): 138.0 ml LVOT diam: 2.3 cm ESV(Teich): 54.2 ml TAPSE: 2.4 cm RV S El: 12.6 cm/sec Doppler Measurements & Calculations MV E max el: 74.7 cm/sec MR max el: 441.8 cm/sec MV A max el: 82.5 cm/sec MR max P.1 mmHg MV E/A: 0.91 Med Peak E' El: 6.7 cm/sec Med E/e': 11.1 Lat Peak E' El: 11.6 cm/sec Lat E/e': 6.4 Procedure A complete two-dimensional transthoracic echocardiogram was performed (2D, M-mode, Doppler and color flow Doppler). Left Ventricle The left ventricle is normal in size. Left ventricular systolic function is normal. Ejection Fraction = 60- 65%. E/A reversal and TDI reveals impaired relaxation with normal filling pressure (E/E' 11). No jonathan onal wall motion abnormalities noted. Right Ventricle The right ventricle is normal size. The right ventricular systolic function is normal. RV systolic TD I is 13 cm/s. Atria The left atrial size is normal. Right atrial size is normal. Mitral Valve There is mild mitral annular calcification. Focal calcification on posterior mitral valve tip. There is mild mitral valve prolapse. Prolapse of the posterior mitral leaflet(s). There is mild mitral regurgitatio n. The mitral regurgitant jet is eccentrically directed. The mitral regurgitant jet is anteriorly directed, which is consistent with posterior leaflet pathology. Tricuspid Valve The tricuspid valve is normal in structure and function. There is mild tricuspid regurgitation. Aortic Valve The aortic valve is normal in structure and function. No aortic regurgitation is present. Pulmonic Valve The pulmonic valve is not well visualized. Great Vessels The aortic root is normal size. Pericardium/Pleura There is no pericardial effusion. Interpretation Summary The left ventricle is normal in size. Left ventricular systolic function is normal. No regional wall motion abnormalities noted. Ejection Fraction = 60-65%. E/A reversal and TDI reveals impaired relaxation with normal filling pressure (E/E' 11) The right ventricular systolic function is normal. The left atrial size is normal. Right atrial size is normal. There is mild mitral annular calcification. Focal calcification on posterior mitral valve tip There is mild mitral valve prolapse. Prolapse of the posterior mitral leaflet(s). There is mild mitral regurgitation. The mitral regurgitant jet is eccentrically directed. The mitral regurgitant jet is anteriorly directed, which is consistent with posterior leaflet patholo gy. There is mild tricuspid regurgitation. There is no pericardial effusion. Previous study is not available for comparison Dinesh Lazcano MD 09/19/2018 09:57 AM
[2018-09-19 10:29] VITALS: BP 155/85; PULSE 87; TEMP 98.4
--- NOTE | 2018-09-19 12:48 | PN ---
Progress Note, Physician History of Present Illness: The patient is a 47 year old male with past medical history of hypertension, hyperlipidemia, overweight, sciatica-->lower back surgery 2016, with left foot weakness post-0p (wears a brace), anxiety, who presents to the ED with complaints of 2 days of heardache and chest pressure. The patient states that while at work he developed a non-radiating, 10/10 pressure sensation accompanied by mild shortness of breath, diaphoresis, nausea, and two episodes of nonbloody nonbilious vomiting. He then checked his blood pressure at home which read 170/110. This feeling continued throughout the night and had improved this morning but progressively worsened throughout the day. In the ED he reports his symptoms have subsided slightly and he is now weak. He denies any modifying factors. He reports associated headache but states he typically has one every day. Denies any fevers or chills. Denies any palpitations, lightheadedness or dizziness. Denies any urinary symptoms. Denies recent travel. Social: Has a social drink and cigar. Denies any drug use. Family: Prominent cardiac history from both mother and father. PCP: Dr. Pope Disposition Clerk: Dr. Lang (has missed past 2 appointments). - Current Medication List Current Medications: Active Medications Aspirin (Asa -) 81 mg PO DAILY [facility] Last Admin: 09/18/18 09:34 Dose: 81 mg Atorvastatin Calcium (Lipitor -) 40 mg PO HS [facility] Last Admin: 09/18/18 21:57 Dose: Not Given Heparin Sodium (Porcine) (Heparin -) 5,000 unit SQ TID [facility] Last Admin: 09/19/18 05:54 Dose: 5,000 unit Nifedipine (Procardia Xl -) 60 mg PO DAILY [facility] Last Admin: 09/18/18 09:34 Dose: 60 mg Ramipril (Altace -) 10 mg PO DAILY [facility] Last Admin: 09/18/18 09:34 Dose: 10 mg - Objective Vital Signs: Vital Signs Temperature 98.4 F 09/19/18 09:00 Pulse Rate 87 09/19/18 09:00 Respiratory Rate 18 09/19/18 09:00 Blood Pressure 155/85 09/19/18 09:00 O2 Sat by Pulse Oximetry (%) 95 09/19/18 09:00 Eyes: Yes: WNL, Conjunctiva Clear, EOM Intact HENT: Yes: WNL, Atraumatic, Normocephalic Neck: Yes: WNL, Supple, Trachea Midline Cardiovascular: Yes: WNL, Regular Rate and Rhythm Respiratory: Yes: WNL, Regular, CTA Bilaterally Gastrointestinal: Yes: WNL, Normal Bowel Sounds Genitourinary: Yes: WNL Musculoskeletal: Yes: WNL Extremities: Yes: WNL Edema: No Integumentary: Yes: WNL Neurological: Yes: WNL, Alert, Oriented ...Motor Strength: WNL Psychiatric: Yes: WNL Labs: CBC, BMP 09/19/18 05:30 09/19/18 05:30 INR, PTT INR 1.17 (0.83-1.09) H 09/17/18 21:53 Assessment/Plan - Problems (1) Chest pain Assessment/Plan: see under "HTN". Code(s): R07.9 - CHEST PAIN, UNSPECIFIED Qualifiers: Chest pain type: unspecified Qualified Code(s): R07.9 - Chest pain, unspecified (2) Elevated glucose Code(s): R73.09 - OTHER ABNORMAL GLUCOSE (3) Headache Assessment/Plan: daily headaches; he believes it is related to elevated BP, but does not take BP reading every day. Head CT 04/2018: no acute pathology Code(s): R51 - HEADACHE Qualifiers: Headache type: tension-type Headache chronicity pattern: unspecified pattern Intractability: not intractable Qualified Code(s): G44.209 - Tension -type headache, unspecified, not intractable (4) Hyperlipidemia Assessment/Plan: inrease statin (LDL >100 mg/dL). Decrease weight with portion control (pt says he follows a diet rich in fruits and vegetables); increase exercise (once coronary arteries are evaluated). Code(s): E78.5 - HYPERLIPIDEMIA, UNSPECIFIED (5) Hypertension Assessment/Plan: On nifedipine, HCTZ (last took yesterday afternoon, per pt; he says he has to urinate several times a night because of the medication), ACEI. Discontinue metoprolol. Serial BP and HR (on ramipril and nifedipine). TNI < 0.02 x 3. EKG: NSR; nonspecific T wave changes. Elevated lipids. F/u TSH. Pt with SOB and chest pressure. For stress MIBI in am. Code(s): I10 - ESSENTIAL (PRIMARY) HYPERTENSION (6) NSAID induced gastritis Assessment/Plan: Pt takes ibuprofen for headahces; recommend changing to Tylenol or another class of medicaction for pain. Code(s): T39.391A - POISONING BY OTH NONSTEROID ANTI-INFLAM DRUGS, ACC, INIT; K29.60 - OTHER GASTRITIS WITHOUT BLEEDING (7) Sciatica Code(s): M54.30 - SCIATICA, UNSPECIFIED SIDE
--- NOTE | 2018-09-19 13:20 | PN ---
Teaching Attending Note Name of Resident: Yumiko Montenegro ATTENDING PHYSICIAN STATEMENT I saw and evaluated the patient. I reviewed the resident's note and discussed the case with the resident. I agree with the resident's findings and plan as documented. SUBJECTIVE:asymptomatic. denies Cp, SOB, fever, chills, N/V/C/D OBJECTIVE: Last Vital Signs Temp Pulse Resp BP Pulse Ox 98.4 F 87 18 155/85 95 09/19/18 09:00 09/19/18 09:00 09/19/18 09:00 09/19/18 09:00 09/19/18 09:00 General NAD ASSESSMENT AND PLAN: 47yo M with PMH HTN and dyslipidemia presented to the Er iwth CP x2 days 1. CP- no events on radiation monitor. no re-occurrence of CP. NPO for NMST. echo pending. Cardio on board 2. HTN- controlled. medications adjusted. cont at this time. 3. Dsylipidemia- switch to high intensity statin 4. DVT ppx- hep sq 5. possible d/c pending results of test.
[2018-09-19] MEDS: NIFEdipine E.R 60 MG TABLET (UD) PO SCH (16:07)
[2018-09-19] MEDS: RAMIPRIL 5 MG CAPSULE (FP) PO SCH (16:07)
[2018-09-19] MEDS: ASPIRIN 81 MG CHEWABLE TABLETS PO SCH (16:07)
--- NOTE | 2018-09-19 17:48 | DS ---
Physical Exam: SUBJECTIVE: Patient seen and examined at bedside. states he is feeling much better and is no longer having any chest pain or trouble breathing. patient going for stress test this AM. he denies any CP/SOB/N/V fevers or chills. OBJECTIVE: Vital Signs Period Temp Pulse Resp BP Sys/Tovar Pulse Ox Last 24 Hr 98.1 F-99 F 81-92 18-20 126-155/83-85 95-95 PHYSICAL EXAM GENERAL: The patient is awake, alert, and fully oriented, in no acute distress. EYES: no scleal icterus NECK:no JVD LUNGS: Breath sounds equal, clear to auscultation bilaterally, no wheezes, no crackles, no accessory muscle use. HEART: Regular rate and rhythm, S1, S2 without murmur, rub or gallop. ABDOMEN: Soft, nontender, nondistended, normoactive bowel sounds, no guarding, no rebound, no hepatosplenomegaly, no masses. EXTREMITIES: 2+ pulses, warm, well-perfused, no edema. PSYCH: Normal mood, normal affect. SKIN: Warm, dry, normal turgor, no rashes or lesions noted. LABS Laboratory Results - last 24 hr 09/18/18 09/19/18 09/19/18 20:50 05:30 05:30 WBC 6.1 RBC 5.23 Hgb 15.9 Hct 47.4 MCV 90.6 MCH 30.4 MCHC 33.5 RDW 12.8 Plt Count 148 MPV 9.5 Sodium 137 Potassium 4.0 Chloride 105 Carbon Dioxide 27 Anion Gap 6 L BUN 19 H Creatinine 1.0 Creat Clearance w eGFR > 60 Random Glucose 98 Hemoglobin A1c % 6.3 Calcium 8.5 Phosphorus 3.8 Magnesium 2.1 TSH 2.27 Imaging: Nuclear stress test: exercise results were negative. Nuclear results: small zone of inferolateral fixed defect consistent with diaphragmatic attenuation. LVEF with rest 56% and with exercise 61% Echo: normal left ventricular size EF: 60-65% normal right ventricular size and function no regional wall motion abnormalities no pericardial effusion seen HOSPITAL COURSE: Date of Admission:09/18/18 patient with PMH of HTN, HLD and mitral valvle prolaspe came to the ER with complaints of worsening chest pain with associated diaphoresis, and two episodes of vomiting. 3 sets of Troponins were drawn and all were negative. He was given sublingual nitro with immediate relief of chest pain. his BP was also elevated on admission - patient was noncompliant with BP meds so we started him on Nifedipine 60 daily and ramipril 10 daily in addiiton to ASA 81 daily. We consulted his cardiolisgist, Dr. Lang who saw and evaluated the patient and suggested he go for a stress test. Patient had both an echo and a nuclear stress test- both of which were normal. He was discharged home in stable condition with both of those new medications on board and told to follow up with his gasoline service attendant in a week. Date of Discharge: 09/19/18 Minutes to complete discharge: 39 Discharge Summary Reason For Visit: CHEST PAIN Condition: Stable - Instructions Diet, Activity, Other Instructions: You came to the hospital with complaints of ongoing chest pain for a few days. We did an EKG of your heart which did not have any findings of your concern. We increased the dose of your cholesterol medicine, atorvastatin to 40 mg from 20 mg and we added two new medications for your high blood pressure, Nifedipine and ramipril. We had your gasoline service attendant, Dr. Lang come and evaluate you and he suggested you get a stress test of your heart. We performed a stress test of your heart which did not show anything abnormal. Your home medications have been changed. refer to medication list for these changes -please take Nifedipine 60mg daily -ramipril 10mg daily -atorvastatin 40mg daily in addition, please continue taking your aspirin 81mg and GERD medications daily. Referrals: -we advise that you follow up with your primary care physician in one week -we advise that you follow up with Dr. Lang within two weeks *if you begin to experience any chest pain, shortness of breath, nausea/vomiting /fevers or chills please return to the emergency room immediately Referrals: Sudhir Pope MD [Primary Care Provider] - 1 Week Sebastien Lang MD [Staff Physician] - 1 Week Disposition: HOME - Home Medications Comprehensive Discharge Medication List: Ambulatory Orders Famotidine [Pepcid] 40 mg PO DAILY #0 02/22/15 Docusate Sodium [Colace -] 100 mg PO TID 05/11/17 Aspirin [ASA -] 81 mg PO DAILY 30 Days #30 tab.chew 10/29/18 Atorvastatin Ca [Lipitor] 40 mg PO HS 30 Days #30 tablet 09/19/18 Meloxicam 7.5 mg PO DAILY 09/19/18 Nifedipine ER [Procardia XL -] 60 mg PO DAILY 30 Days #30 tab.er.24 09/19/18 Ramipril [Altace] 10 mg PO DAILY 30 Days #30 capsule 09/19/18 Ranitidine [Zantac -] 50 mg PO DAILY 09/19/18 Problem List - Problems (1) Chest pain Code(s): R07.9 - CHEST PAIN, UNSPECIFIED Qualifiers: Chest pain type: unspecified Qualified Code(s): R07.9 - Chest pain, unspecified (2) Hyperlipidemia Code(s): E78.5 - HYPERLIPIDEMIA, UNSPECIFIED (3) Hypertension Code(s): I10 - ESSENTIAL (PRIMARY) HYPERTENSION This patient is new to me today: No Emergency Visit: Yes ED Registration Date: 09/18/18 Care time: The patient presented to the Emergency Department on the above date and was hospitalized for further evaluation of their emergent condition. Critical Care patient: No - Discharge Referral Referred to [facility] Yes Physician Referral: Tim Hair MD ([facility])
== END 2018-09-19 17:39 | disposition home or self-care (01) ==
LOC: JER 20:10 → JERBED 09-18 00:22 → J4W 09-18 04:57
PROVIDERS: ADMIT Internal Medicine; ATTEND Internal Medicine
PROC: 3E033GC Introduction of Other Therapeutic Substance into Peripheral Vein, Percutaneous Approach (ICD-10-PCS; principal; 2018-09-18)
DX: R07.9 Chest pain, unspecified (principal); I10 Essential (primary) hypertension; E78.5 Hyperlipidemia, unspecified; R73.09 Other abnormal glucose; G44.209 Tension-type headache, unspecified, not intractable; M54.30 Sciatica, unspecified side; T39.391A Poisoning by other nonsteroidal anti-inflammatory drugs [NSAID], accidental (unintentional), initial encounter; K29.60 Other gastritis without bleeding; Y92.9 Unspecified place or not applicable
CPT/HCPCS: 36415; 71046-TC-FY; 78452-TC; 80048; 80053; 80061; 82550; 82553; 83036; 83721; 83735; 84100; 84443; 84480; 84484; 85025; 85027; 85610; 93005; 93010; 93017; 93306-TC; 96374; 99285-25; A9502; G0378; J0131; J1644

== ENCOUNTER 2020-11-18 19:40 | Inpatient (IN) | payer OTHER ==
[2020-11-18 20:26] VITALS: BMI 30.2
[2020-11-18] MEDS ORDERED: DEXAMETHASONE SOD PHOSPHATE 10 MG/1 ML VIAL IVPUSH ONE (21:23)
[2020-11-18] MEDS ORDERED: morphine CARPU-JECT 4 MG/1 ML DISP.SYRIN IVPUSH ONE (21:23)
[2020-11-18] MEDS ORDERED: DEXAMETHASONE SOD PHOSPHATE 4 MG/1 ML VIAL ONE (21:47)
[2020-11-18] MEDS ORDERED: morphine SULFATE 4 MG/ML VIAL ONE (21:47)
[2020-11-18 22:17] LABS: BASO % 0.5 % (0-2.0); EOS % 1.1 % (0-4.5); HEMOGLOBIN 16.8 GM/dL (11.7-16.9); LYMPH % 32.2 % (8-40); MCH 31.1 pg (25.7-33.7); MCHC 34.3 g/dl (32.0-35.9); MEAN CELL VOLUME 90.7 fl (80-96); MEAN PLT VOLUME 9.8 fl (7.5-11.1); MONO % 12.5 % (3.8-10.2); NEUT % 53.7 % (42.8-82.8); PLATELET COUNT 192 K/MM3 (134-434); RDW 13.4 % (11.9-15.9); WHITE BLOOD COUNT 8.4 K/mm3 (4.0-10.0)
[2020-11-18 22:18] LABS: URINE APPEARANCE CLEAR; URINE BILIRUBIN NEGATIVE (NEGATIVE); URINE COLOR YELLOW; URINE GLUCOSE (UA) NEGATIVE (NEGATIVE); URINE KETONE NEGATIVE (NEGATIVE); URINE LEUK ESTERASE NEGATIVE (NEGATIVE); URINE NITRITE NEGATIVE (NEGATIVE); URINE PROTEIN NEGATIVE (NEGATIVE)
[2020-11-18 22:25] LABS: INR 1.15 (0.83-1.09); PROTHROMBIN TIME (PATIENT) 13.9 SEC (9.7-13.0)
[2020-11-18 22:27] LABS: ACTIVATED PTT 30.9 SECONDS (25.2-36.5)
[2020-11-18 22:44] LABS: ALBUMIN 4.1 g/dl (3.4-5.0); CALCIUM 9.6 mg/dL (8.5-10.1)
[2020-11-18 22:48] LABS: CREATININE 1.3 mg/dL (0.55-1.3)
[2020-11-18 22:49] LABS: BILIRUBIN,TOTAL 0.7 mg/dL (0.2-1); TOT PROT 7.5 g/dl (6.4-8.2)
[2020-11-19] MEDS ORDERED: morphine CARPU-JECT 4 MG/1 ML DISP.SYRIN IVPUSH ONE (01:34)
[2020-11-19] MEDS ORDERED: morphine SULFATE 4 MG/ML VIAL ONE (01:56)
[2020-11-19] MEDS ORDERED: oxyCODONE HCL 5 MG TABLET PO PRN (07:33)
[2020-11-19] MEDS ORDERED: SODIUM CHLORIDE 1,000 ML IV STA ×2 (07:33→09:51)
[2020-11-19 09:54] VITALS: BP 137/89; PULSE 78; TEMP 98
== END 2020-11-19 13:15 | disposition left against medical advice (07) | DRG 48 ==
LOC: JER 19:40 → JERBED 23:01
PROVIDERS: ADMIT Hospitalist; ATTEND Internal Medicine
DX: G83.4 Cauda equina syndrome (principal); R20.0 Anesthesia of skin; M54.30 Sciatica, unspecified side; N17.9 Acute kidney failure, unspecified; I10 Essential (primary) hypertension; N52.8 Other male erectile dysfunction; K59.00 Constipation, unspecified; S39.92XA Unspecified injury of lower back, initial encounter; E78.5 Hyperlipidemia, unspecified
CPT/HCPCS: 36415; 72141-TC; 72146-TC; 72148-TC; 80053; 81003; 85025; 85610; 85730; 86850; 86900; 86901; 87086; 93005; 93010; 99285-25; C9803; J1100; U0003

== ENCOUNTER 2024-01-01 13:28 | Emergency (ER) | payer OTHER ==
[2024-01-01 13:39] VITALS: BP 154/95; PULSE 81; RESP 20; TEMP 98.7; BMI 30.3
== END 2024-01-01 14:54 | disposition home or self-care (01) ==
LOC: JERFT 13:28
DX: R05.9 Cough, unspecified (principal); R53.83 Other fatigue; R09.89 Other specified symptoms and signs involving the circulatory and respiratory systems; J40 Bronchitis, not specified as acute or chronic; U07.1 COVID-19
CPT/HCPCS: 0241U-QW; 71046-TC-FY; 99284-25